=== PATIENT | male | born 1975 | race Asian ===

== ENCOUNTER 2017-11-21 18:49 | Emergency (ER) | payer OTHER ==
[2017-11-21 20:00] LABS: ADD MAN DIFF? NO
[2017-11-21 20:03] LABS: BASO % 1 % (0-3); EOS # 0.1 x10^3/uL (0.0-0.7); EOS % 2 % (0-3); HEMATOCRIT 38.4 % (39.0-53.0); HEMOGLOBIN 13.4 g/dL (13.0-17.5); LYMPH # 2.1 x10^3/uL (1.0-4.8); LYMPH % 44 % (24-48); MEAN CORPUSCULAR HEMOGLOBIN 32 pg (25-35); MEAN CORPUSCULAR HGB CONC 35 g/dL (31-37); MEAN CORPUSCULAR VOLUME 91 fL (79-100); MONO # 0.5 x10^3/uL (0.0-1.1); MONO % 11 % (0-9); NEUT % 42 % (31-73); PLATELET COUNT 157 x10^3/uL (140-400); RED BLOOD COUNT 4.21 x10^6/uL (4.30-5.70); RED CELL DISTRIBUTION WIDTH 12.5 % (11.5-14.5); WHITE BLOOD COUNT 4.8 x10^3/uL (4.0-11.0)
[2017-11-21] MEDS: IV NORMAL SALINE 1000ML BAG 1,000 ML IV (20:11)
[2017-11-21 20:13] LABS: INR 1.2 (0.8-1.1); PROTHROMBIN TIME PATIENT 14.4 SEC (11.7-14.0)
[2017-11-21 20:18] LABS: ANION GAP 7 (6-14); BLOOD UREA NITROGEN 11 mg/dL (8-26); CALCIUM 8.6 mg/dL (8.5-10.1); CARBON DIOXIDE 27 mmol/L (21-32); CHLORIDE 103 mmol/L (98-107); CREATININE 1.2 mg/dL (0.7-1.3); GFR 66.4; GLUCOSE 121 mg/dL (70-99); POTASSIUM 3.4 mmol/L (3.5-5.1); SODIUM 137 mmol/L (136-145)
[2017-11-21 20:21] LABS: C-REACTIVE PROTEIN < 0.5 mg/L (0-3.3)
[2017-11-21 20:24] LABS: ALBUMIN 3.3 g/dL (3.4-5.0); ALK PHOS 70 U/L (46-116); ALT (SGPT) 16 U/L (16-63); AST (SGOT) 18 U/L (15-37); DIRECT BILIRUBIN 0.2 mg/dL (0.0-0.2); LIPASE 172 U/L (73-393); TOTAL BILIRUBIN 0.7 mg/dL (0.2-1.0)
[2017-11-21 20:27] LABS: TROPONINI < 0.017 ng/mL (0.000-0.055)
[2017-11-21 20:31] LABS: THYROID STIM HORMONE (TSH) 1.518 uIU/mL (0.358-3.74)
[2017-11-21 20:32] LABS: CKMB MASS < 0.5 ng/mL (0.0-3.6); CREATINE KINASE 92 U/L (39-308)
[2017-11-21 20:32] LABS: NT-PRO BNP 42 pg/mL (0-124)
[2017-11-21 21:16] LABS: BILIRUBIN,URINE NEGATIVE (NEG); CLARITY,URINE CLEAR; COLOR,URINE YELLOW; GLUCOSE,URINE NEGATIVE (NEG); NITRITE,URINE NEGATIVE (NEG); PROTEIN,URINE NEGATIVE (NEG-TRACE)
[2017-11-21 21:23] LABS: BARBITURATES NEG (NEG); BENZODIAZEPINES NEG (NEG); CANNABINOIDS NEG (NEG); COCAINE NEG (NEG); METHADONE NEG (NEG); OPIATES NEG (NEG); PHENCYCLIDINE NEG (NEG)
[2017-11-21 21:24] LABS: AMPHETAMINE/METHAMPHETAMINE NEG (NEG); BACTERIA,URINE 0 /HPF (0-FEW); ETHANOL, URINE NEG (NEG); RBC,URINE 0 /HPF (0-2); WBC,URINE 0 /HPF (0-4)
[2017-11-21] MEDS: KETOROLAC 30 MG/ML INJ. IV (22:41)
[2017-11-21] MEDS: METOCLOPRAMIDE HCL 10 MG/2 ML VIAL. IV (22:42)
== END 2017-11-21 23:30 | disposition home or self-care (01) ==
LOC: ER 23:30
DX: R51 Headache (principal); R00.1 Bradycardia, unspecified; R42 Dizziness and giddiness; R11.2 Nausea with vomiting, unspecified
CPT/HCPCS: 36415; 70450; 71045; 80048; 80076; 80307; 81001; 82553; 83690; 83735; 83880; 84443; 84484; 85025; 85610; 86140; 93005; 96361; 96374; 96375; 99285-25; J1885; J2765; J7030

== ENCOUNTER → 2018-01-11 | Outpatient (CLI) | payer OTHER | END | disposition home or self-care (01) | LOC: NM 09:07 | DX: I36.1 Nonrheumatic tricuspid (valve) insufficiency (principal); R00.1 Bradycardia, unspecified | CPT/HCPCS: 93017; 93306 ==

== ENCOUNTER → 2018-04-24 | Outpatient (CLI) | payer OTHER | END | disposition home or self-care (01) | LOC: ECHO 13:53 | DX: I42.8 Other cardiomyopathies (principal) | CPT/HCPCS: 93306 ==

== ENCOUNTER → 2018-05-10 | Outpatient (CLI) | payer OTHER ==
[2017-11-21 22:30] VITALS: BP 93/66
[~2018-05-10] MED LIST: TRAM50TA PO
--- NOTE | 2018-05-10 17:43 | KCIC ---
CHEST AP ONLY History: Positive PPD. Comparison: 11/21/2017 image but no report Heart size: Within normal limits. Gabrielle/mediastinum: Within normal limits Lungs: No focal airspace consolidation. Pleura: No evidence of pleural effusion. Pneumothorax: None visualized Bones: Regional skeleton appears grossly intact. Miscellaneous: None Impression: No acute radiographic findings. Electronically signed by: Benny Marroquin MD (05/10/2018 5:40 PM) [id number]
== END | disposition home or self-care (01) ==
LOC: KCIC 12:10
PROVIDERS: ATTEND Family Medicine
DX: R76.11 Nonspecific reaction to tuberculin skin test without active tuberculosis (principal)
CPT/HCPCS: 71045